=== PATIENT | male | born 2000 | race Caucasian/White ===

== ENCOUNTER 2025-06-25 00:33 | Emergency (ER) | payer OTHER ==
[~2025-06-25] VITALS: Ht 172.7 cm; Wt 70.3 kg
[~2025-06-25 00:33] MED LIST: Esgic Tablet1 EACH PO
[2025-06-25 00:46] VITALS: BP 144/87
[2025-06-25] MEDS ORDERED: Lidocaine 4% 1 Patch TOP ONE (01:35)
[2025-06-25] MEDS ORDERED: CYCL10 PO (03:38)
[2025-06-25] MEDS ORDERED: LIDO700A20 TOP (03:38)
== END 2025-06-25 04:13 | disposition home or self-care (01) ==
LOC: ER 00:33
DX: M54.50 Low back pain, unspecified (principal); V89.2XXA Person injured in unspecified motor-vehicle accident, traffic, initial encounter
CPT/HCPCS: 72100; 90471; 90715; 99284-25; A9270